=== PATIENT | female | born 1935 | race Caucasian/White ===

== ENCOUNTER 2020-09-21 15:24 | Emergency (ER) | payer MEDICARE, SELFPAY ==
--- NOTE | ~2020-09-21 | CT_ITS ---
EXAMINATION: CT abdomen pelvis w con DATE: 09/21/2020 16:34 INDICATION: Right-sided abdominal pain. TECHNIQUE: Computed tomography (CT) of the abdomen and pelvis was performed with 100 cc Omnipaque 350 intravenous contrast. The dose-length product was 814.90 mGy-cm. Automated exposure control and iter ative reconstruction technique were employed. COMPARISON: None. FINDINGS: Bibasilar atelectasis. Heart size normal. No significant pleural or pericardial effusion. Gallbladder is distended. There are gallstones. There is mild biliary dilatation. The spleen, adrenal glands and kidneys are unremarkable. There is a right renal cyst. 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 There is fluid throughout the colon with moderate fecal loading of the distal colon or rectum. No obstruction. Streak artifact from bilateral hip arthroplas ties limits evaluation of the pelvis. Normal appendix. Colonic diverticulosis without evidence for di verticulitis. Moderate lumbar spondylosis. There is scoliosis. No acute osseous abnormality. IMPRESSION: 1. Cholelithiasis with gallbladder distention and mild biliary dilatation. Consider cholecystitis in the appropriate clinical setting. Reviewed, dictated and finalized at location A. IMPRESSION: 1. Cholelithiasis with gallbladder distention and mild biliary dilatation. Cons ider cholecystitis in the appropriate clinical setting.
--- NOTE | ~2020-09-21 | XR_ITS ---
EXAMINATION: XR chest 2V 09/21/2020 16:43 INDICATION: Right upper quadrant pain PROCEDURE: AP and lateral views of the chest COMPARISON: No prior studies for comparison. FINDINGS: The lungs are clear. The cardiomediastinal silhouette is within normal limits. There are no pleural effusions. There is no pneumothorax suspected. IMPRESSION: 1: NO ACUTE CARDIOPULMONARY DISEASE. Reviewed, dictated and finalized at location A.
[2020-09-21 15:31] VITALS: BP 153/79; PULSE 81; RESP 24; TEMP 36.4; O2SAT 100
--- NOTE | 2020-09-21 15:32 | ED.GENADULT ---
HPI - General Adult General Chief complaint: Unspecified Stated complaint: RUQ pain Source: patient Mode of arrival: EMS Limitations: no limitations History of Present Illness HPI narrative: This is an 85 year old female who presents for evaluation of right upper abdominal pain. She states her pain started this morning. She reports her pain radiates to her back and it has been intermittent. She denies associated nausea or vomiting. She denies sob but she has a cough. She denies fever or chills. She does report a history of gallstones. Related Data Home Medications Medication Instructions Recorded Confirmed cholecalciferol (vitamin D3) 50 3,000 unit PO DAILY cap 06/14/19 06/14/19 mcg (2,000 unit) capsule Allergies Allergy/AdvReac Type Severity Reaction Status Date / Time No Known Allergies Allergy Verified 06/14/19 09:15 Review of Systems Review of Systems: Narrative: CONSTITUTIONAL: Denies fever, chills, or sweats. EYES: Denies visual changes, redness, or discharge. ENT: Denies rhinorrhea, congestion, sore throat, or otalgia. CARDIOVASCULAR: Denies chest pain, palpitations, or edema. RESPIRATORY: Denies dyspnea. GASTROINTESTINAL: Denies , nausea, vomiting, or diarrhea. GENITOURINARY: Denies dysuria or hematuria. SKIN: Denies rash or itching. MUSCULOSKELETAL: Denies joint pain, or myalgia. NEUROLOGIC: Denies headache, numbness, or weakness. PSYCHIATRIC: Denies anxiety or depression. All systems reviewed & are unremarkable except as noted in HPI and below PMFSH Past Medical History Medical History (Updated 09/21/20 @ 17:54 by Leighann Miranda MD) Gallstones Parkinson's disease Social History Social History Smoking status: Never smoker Alcohol intake: never Exam Narrative: Exam Narrative: GENERAL: Well-appearing, well-nourished, and in no acute distress. HEAD: Normocephalic, atraumatic EYES: PERRLA and EOMI, conjunctiva clear without discharge THROAT:Mucous membranes moist, Oropharynx normal without erythema, exudate, peritonsillar swelling or fluctuance NECK: Supple, without lymphadenopathy or mass RESPIRATORY: No respiratory distress, Airway patent, Respirations non-labored, Clear to auscultation without rales, rhonchi or wheeze HEART: Regular rate and rhythm. No murmur heard. Normal peripheral pulses. ABDOMEN: Soft, TTP RUQ, nondistended, normal active bowel sounds. No masses. No rebound or guarding, No organomegaly. EXTREMITIES: No edema, normal strength with full range of motion. SKIN: Warm, dry, normal color without rash NEURO: Alert and oriented x3. CN 2-12 grossly intact. No focal deficits. PSYCH: Normal mood and affect. Course Reevaluation(s) Reevaluation #1: I have discussed with patient that CT shows gallstone and plan will be to discharge on low fat diet. She understands she will need to follow up . She denies having any pain Date: 09/21/20 Time: 17:24 Consultations Consultation #1: I discussed case and CT with DR. Alba. He states patient can be put on low fat diet and to follow up as outpatient. Date: 09/21/20 Time: 17:24 Vital Signs Vital signs: Vital Signs Temperature 97.6 F 09/21/20 15:31 Pulse Rate 81 09/21/20 15:31 Respiratory Rate 24 H 09/21/20 15:31 Blood Pressure 153/79 H 09/21/20 15:31 Pulse Oximetry 100 09/21/20 15:31 Temperature 97.6 F 09/21/20 15:31 Pulse Rate 72 09/21/20 17:36 Respiratory Rate 19 09/21/20 17:36 Blood Pressure 147/72 H 09/21/20 17:36 Pulse Oximetry 100 09/21/20 17:36 Medical Decision Making Vital Signs Vital Signs: Vital Signs Temperature 97.6 F 09/21/20 15:31 Pulse Rate 81 09/21/20 15:31 Respiratory Rate 24 H 09/21/20 15:31 Blood Pressure 153/79 H 09/21/20 15:31 Pulse Oximetry 100 09/21/20 15:31 Temperature 97.6 F 09/21/20 15:31 Pulse Rate 72 09/21/20 17:36 Respiratory Rate 19 09/21/20 17:36 Blood Pressure
[2020-09-21] MEDS: LACTATED RINGERS 1,000 ML 999 ML IV CONT (15:44)
--- NOTE | 2020-09-21 15:45 | PC.NURSE ---
Pt refused morphine and Zofran. Pt states she is not nauseas and has no pain at this time. Informed Dr. Miranda of this.
[2020-09-21 15:52] LABS: Basophils Percent Auto 0.3 % (0.2-1.2); Eosinophils Absolute Auto 0.1 K/mm3 (0-0.3); Eosinophils Percent Auto 0.5 % (0-4.4); Hematocrit 42.1 % (37.0-47.0); Hemoglobin 13.6 g/dL (12.0-15.0); Immature Granulocyte Absolute 0.16 K/mm3 (0.00-0.031); Immature Granulocyte Percent A 1.4 % (0-0.5); Lymphocytes Absolute Auto 0.85 K/mm3 (0.9-3.2); Lymphocytes Percent Auto 7.7 % (18.3-44.2); Mean Corpuscular HGB Conc 32.3 g/dl (32-36); Mean Corpuscular Hemoglobin 30.6 pg (26-34); Mean Corpuscular Volume 94.8 fl (80-100); Mean Platelet Volume 8.6 fl (7.4-10.4); Monocytes Absolute Auto 0.6 K/mm3 (0.1-0.6); Monocytes Percent Auto 5.1 % (2.6-8.5); Neutrophils Absolute Auto 9.4 K/mm3 (1.3-6.7); Platelet Count Result 277 k/mm3 (150-375); Red Blood Count 4.44 M/mm3 (4.2-5.4); Red Cell Distribution Width 13.2 % (11.5-14.5); White Blood Count 11.1 K/mm3 (4.5-10.0)
[2020-09-21 16:00] LABS: Lactic Acid Reflex 1.3 mmol/L (0.7-2.1); Potassium 4.5 mmol/L (3.4-5.0)
[2020-09-21 16:02] LABS: Alanine Aminotransferase 10 U/L (4-35); Albumin Level 4.3 g/dL (3.5-5.1); Alkaline Phosphatase 84 U/L (38-126); Anion Gap 4 mmol/L (8-16); Aspartate Amino Transferase 31 U/L (14-36); Bilirubin,Total 0.5 mg/dL (0.2-1.3); Blood Urea Nitrogen 25 mg/dL (7-17); Calcium 9.3 mg/dL (8.4-10.2); Carbon Dioxide 31 mmol/L (22-30); Chloride 105 mmol/L (98-107); Estimated CRCL calculation 40 ml/min; Estimated Glomerular Filt Rate 60; Glucose 124 mg/dL (65-105); Lipase 103 U/L (23-300); Sodium 140 mmol/L (137-145)
[2020-09-21 17:22] LABS: Add Urine Microscopic? YES; Appearance Urine Cloudy (Clear); Bacteria Urine 3+ /hpf; Bilirubin Urine Negative (Negative); Blood Urine Negative (Negative); Color Urine Yellow (Yellow); Glucose Urine UA Negative (Negative); Ketones Urine Negative (Negative); Leukocyte Esterase Ur 2+ LEU/UL (Negative); Mucus Urine Rare /lpf; Nitrate Urine Positive (Negative); Protein Urine Negative (Negative); Squamous Epithelial Cell Urine Few /hpf (Few); Transitional Epi Cells Urine Rare /hpf (None Seen); Urobilinogen Urine Negative mg/dL (<2.0); WBC Urine 16-20 /hpf
[2020-09-21 17:23] LABS: Specific Grav Ur 1.048 (1.001-1.035)
[2020-09-21 17:36] VITALS: BP 147/72; PULSE 72; RESP 19; O2SAT 100
--- NOTE | 2020-09-21 18:18 | PC.NURSE ---
made contact with [facility] and meet. both companies declined due to shortage of trucks. called [employer] stated they can be here at 1900
--- NOTE | 2020-09-21 18:30 | PC.NURSE ---
Called [facility] and spoke with Brian. Informed him that pt was coming back to facility and that discharge instructions will be with EMS>
--- NOTE | 2020-09-21 18:45 | PC.NURSE ---
[facility] has arrived
== END 2020-09-21 18:45 | disposition home or self-care (01) ==
PROVIDERS: Emergency Provider General Practice; PCP Family Medicine
DX: K80.70 Calculus of gallbladder and bile duct without cholecystitis without obstruction (principal); N39.0 Urinary tract infection, site not specified; G20 Parkinson's disease
CPT/HCPCS: 36415; 71046; 74177; 80053; 81001; 83605; 83690; 85025; 87086; 87088; 96361; 96365; 99284; J0696; J7120; Q9967